=== PATIENT | female | born 2000 | race American Indian/Alaskan Native ===

== ENCOUNTER 2019-08-21 15:56 | Emergency (ER) | payer MEDICAID, OTHER ==
--- NOTE | 2019-08-21 17:53 | Event Note ---
ED Screening Note Date of service: 08/21/19 Time: 17:51 ED Screening Note: Patient complains of right thumb pain after slamming her finger in the door yesterday She states her tetanus vaccination is up-to-date Patient complains of pain and difficulty moving the thumb and that she is also concerned for infection This initial assessment/diagnostic orders/clinical plan/treatment(s) is/are subject to change based on patients health status, clinical progression and re- assessment by fellow clinical providers in the ED. Further treatment and workup at subsequent clinical providers discretion. Patient/guardian urged not to elope from the ED as their condition may be serious if not clinically assessed and managed. Initial orders include:
--- NOTE | 2019-08-21 18:51 | XRay Report ---
RIGHT THUMB 3 VIEWS INDICATION / CLINICAL INFORMATION: thumb injury, r/o fracture COMPARISON: None available. FINDINGS: BONES / JOINT(S): No acute fracture or subluxation. No significant arthritis. SOFT TISSUES: No significant abnormality. ADDITIONAL FINDINGS: None. Signer Name: Shon Aguiar MD Signed: 08/21/2019 6:47 PM Workstation Name: [id number]
--- NOTE | 2019-08-21 19:29 | Emergency Department Report ---
ED Upper Extremity Inj HPI - General Chief Complaint: Extremity Injury, Upper Stated Complaint: FINGER PAIN Time Seen by Provider: 08/21/19 17:50 Source: patient Mode of arrival: Ambulatory Limitations: No Limitations - History of Present Illness Initial Comments: 18-year-old -Spanish female presents to the emergency room for right thumb injury yesterday. Patient states that she slammed her thumb into the car door. Patient reports she has pain but has not taken anything for it. Patient denies any past medical history currently takes no medications on a daily basis and has no known drug allergies. MD Complaint: Injury to:: right Onset/Timin -: days(s) Other Extremity Injury: Fingers: Right (Thumb) Other Injuries: none Handedness: right Severity scale (0 -10): 8 Improves With: immobilization Worsens With: movement of extremity Context: crush Associated Symptoms: denies other symptoms - Related Data Previous Rx's Medication Instructions Recorded Last Taken Type Ibuprofen [Motrin 600 MG tab] 600 mg PO Q8H PRN #21 tablet 08/21/19 Unknown Rx Allergies Allergy/AdvReac Type Severity Reaction Status Date / Time No Known Allergies Allergy Unverified 08/21/19 16:28 ED Review of Systems ROS: Stated complaint: FINGER PAIN Other details as noted in HPI Comment: All other systems reviewed and negative ED Past Medical Hx - Past Medical History Previous Medical History?: No - Surgical History Past Surgical History?: No - Medications Home Medications: Home Medications Medication Instructions Recorded Confirmed Last Taken Type Ibuprofen [Motrin 600 MG tab] 600 mg PO Q8H PRN #21 tablet 08/21/19 Unknown Rx ED Physical Exam - General Limitations: No Limitations General appearance: alert, in no apparent distress - Head Head exam: Present: atraumatic, normocephalic - Eye Eye exam: Present: normal appearance - ENT ENT exam: Present: mucous membranes moist - Neck Neck exam: Present: normal inspection, full ROM - Expanded Upper Extremity Exam Right General: Present: normal inspection Shoulder Exam: Present: normal inspection Upper Arm exam: Present: normal inspection Elbow exam: Present: normal inspection Forearm Wrist exam: Present: normal inspection Hand Wrist exam: Present: tenderness (Right thumb), swelling (Right thumb). Absent: deformity Vascular: Present: normal capillary refill ED Medical Decision Making - Medical Decision Making 18-year-old -Spanish female presents to the emergency room for right thumb injury yesterday. Patient states that she slammed her thumb into the car door. Patient reports she has pain but has not taken anything for it. Patient denies any past medical history currently takes no medications on a daily basis and has no known drug allergies. X-ray is negative for any acute findings. Will place patient in a finger splint instructed her to take [id number] ibuprofen. Critical care attestation.: If time is entered above; I have spent that time in minutes in the direct care of this critically ill patient, excluding procedure time. ED Disposition Clinical Impression: Thumb injury Disposition: DC-01 TO HOME OR SELFCARE Is pt being admited?: No Does the pt Need Aspirin: No Condition: Stable Instructions: Finger Sprain (ED) Additional Instructions: Take pain medication as prescribed. Wear splint for comfort. Prescriptions: Ibuprofen [Motrin 600 MG tab] 600 mg PO Q8H PRN #21 tablet PRN Reason: Pain Referrals: PRIMARY CAREMD [Primary Care Provider] - 3-5 Days BETTY COOK MD [Staff Physician] - 3-5 Days Forms: Work/School Release Form(ED)
== END 2019-08-21 20:22 | disposition home or self-care (01) ==
LOC: ED 15:56
DX: S69.91XA Unspecified injury of right wrist, hand and finger(s), initial encounter (principal); Z79.1 Long term (current) use of non-steroidal anti-inflammatories (NSAID); X58.XXXA Exposure to other specified factors, initial encounter; Y93.89 Activity, other specified; Y92.89 Other specified places as the place of occurrence of the external cause; Y99.8 Other external cause status

== ENCOUNTER 2019-10-30 19:09 | Emergency (ER) | payer OTHER ==
[2019-10-30] MEDS ORDERED: FAMOTIDINE 20 MG/2 ML INJ IV ONE (19:57)
[2019-10-30] MEDS ORDERED: ONDANSETRON 4 MG/2 ML INJ IV ONE ×2 (19:57→22:41)
[2019-10-30] MEDS ORDERED: MORPHINE 4 MG/1 ML INJ IV ONE (19:57)
[2019-10-30] MEDS ORDERED: SODIUM CHLORIDE 0.9% 1000 ML 1,000 ML IV ONE (19:59)
[2019-10-30 20:06] LABS: Bacteria,Urine 1+ /HPF (Negative); Bilirubin,Urine NEG (Negative); Blood,Urine NEG (Negative); Color,Urine Yellow (Yellow); Mucus,Urine 3+ /HPF; Protein,Urine <15 mg/dL mg/dL (Negative)
[2019-10-30 20:08] LABS: HCG Qualitative,Urine Negative (Negative)
[2019-10-30] MEDS ORDERED: cefTRIAXone/NS 1 GM/50 ML 1 GM/50 ML BAG IV ONE (20:19)
--- NOTE | 2019-10-30 20:26 | Emergency Department Report ---
ED Abdominal Pain HPI - General Chief Complaint: Abdominal Pain Stated Complaint: MAHESH Source: patient Mode of arrival: Ambulatory Limitations: No Limitations - History of Present Illness Initial Comments: Patient is a nulliparous 19-year-old -Aust[place] female with no past m edical history presents to the ED with complaint of acute onset persistent severe right lower quadrant pain that radiates to the right upper quadrant and right flank for the last 2 weeks. Patient states that the pain initially was mild but has progressively getting worse especially in the last 12 hours. Patient states the pain is worse with any movement or inhalation. Patient states the pain also radiates from the right flank to the right lateral ribs. Patient also complains of nausea and lack of appetite and with shortness of breath. Patient denies dizziness, vomiting, fever, chills, cough, diarrhea, dysuria, vaginal discharge, vaginal bleeding, hematuria, sore throat, headache, traumatic injury or heavy lifting. MD Complaint: abdominal pain (RUQ and RLQ pain), flank pain (RIGHT ) -: Sudden, week(s) Location: RUQ, RLQ, R flank Radiation: RUQ, RLQ, R flank, other (right lateral rib pain) Migration to: no migration Severity: severe Severity scale (0 -10): 8 Quality: cramping, aching, sharp Consistency: constant Improves With: nothing Worsens With: movement Associated Symptoms: denies other symptoms, nausea. denies: vomiting, diarrhea, fever, chills, constipation, dysuria, hematemesis, hematochezia, melena, anorexia - Related Data LMP Date: 10/15/19 Previous Rx's Medication Instructions Recorded Last Taken Type Ibuprofen [Motrin 600 MG tab] 600 mg PO Q8H PRN #21 tablet 08/21/19 Unknown Rx Ibuprofen [Motrin] 600 mg PO Q8H PRN #30 tablet 10/30/19 Unknown Rx Ondansetron [Zofran Odt] 4 mg PO Q6HR PRN #15 tab.rapdis 10/30/19 Unknown Rx cephALEXin [Keflex] 500 mg PO Q6HR #40 capsule 10/30/19 Unknown Rx traMADoL [Ultram] 50 mg PO Q6HR PRN #12 tablet 10/30/19 Unknown Rx Allergies Allergy/AdvReac Type Severity Reaction Status Date / Time No Known Allergies Allergy Unverified 08/21/19 16:28 ED Review of Systems ROS: Stated complaint: MAHESH Other details as noted in HPI Constitutional: denies: chills, fever Eyes: denies: eye pain, eye discharge, vision change ENT: denies: ear pain, throat pain, dental pain, congestion Respiratory: denies: cough, shortness of breath, wheezing Cardiovascular: chest pain (right lateral rib pain). denies: palpitations Endocrine: no symptoms reported Gastrointestinal: abdominal pain (RLQ, RUQ and right flank), nausea. denies: vomiting, diarrhea, constipation, hematemesis, hematochezia Genitourinary: denies: urgency, dysuria, frequency, hematuria, discharge Musculoskeletal: denies: back pain, joint swelling, arthralgia Skin: denies: rash, lesions Neurological: denies: headache, weakness, paresthesias, abnormal gait, vertigo Psychiatric: denies: anxiety, depression Hematological/Lymphatic: denies: easy bleeding, easy bruising ED Past Medical Hx - Past Medical History Previous Medical History?: No - Surgical History Past Surgical History?: No - Medications Home Medications: Home Medications Medication Instructions Recorded Confirmed Last Taken Type Ibuprofen [Motrin 600 MG tab] 600 mg PO Q8H PRN #21 tablet 08/21/19 Unknown Rx Ibuprofen [Motrin] 600 mg PO Q8H PRN #30 tablet 10/30/19 Unknown Rx Ondansetron [Zofran Odt] 4 mg PO Q6HR PRN #15 tab.rapdis 10/30/19 Unknown Rx cephALEXin [Keflex] 500 mg PO Q6HR #40 capsule 10/30/19 Unknown Rx traMADoL [Ultram] 50 mg PO Q6HR PRN #12 tablet 10/30/19 Unknown Rx ED Physical Exam - General Limitations: No Limitations General appearance: alert, in no apparent distress - Head Head exam: Present: atraumatic, normocephalic, normal inspection - Eye Eye exam: Present: normal appearance, PERRL, EOMI Pupils: Present: normal accommodation - ENT ENT exam: Present: normal exam, normal orophraynx, mucous membranes moist, TM's normal bilaterally, normal external ear exam - Neck Neck exam: Present: normal inspection, full ROM - Respiratory Respiratory exam: Present: normal lung sounds bilaterally, chest wall tenderness (right lateral rib tenderness). Absent: respiratory distress, wheezes, rales, rhonchi, decreased breath sounds, prolonged expiratory - Cardiovascular Cardiovascular Exam: Present: regular rate, normal rhythm, normal heart sounds. Absent: systolic murmur, diastolic murmur, rubs, gallop - GI/Abdominal GI/Abdominal exam: Present: soft, tenderness (Palpable RUQ, Right flank and RLQ tenderness), guarding, normal bowel sounds. Absent: rebound, rigid, hyperactive bowel sounds, hypoactive bowel sounds, organomegaly - Extremities Exam Extremities exam: Present: normal inspection, full ROM, normal capillary refill - Back Exam Back exam: Present: normal inspection, full ROM. Absent: tenderness, CVA tenderness (R), CVA tenderness (L), muscle spasm, paraspinal tenderness, vertebral tenderness - Neurological Exam Neurological exam: Present: alert, oriented X3, CN II-XII intact, normal gait, reflexes normal - Psychiatric Psychiatric exam: Present: normal affect, normal mood - Skin Skin exam: Present: warm, dry, intact, normal color. Absent: rash ED Course Vital Signs 10/30/19 19:15 Temperature 98.3 F Pulse Rate 96 H Respiratory 16 Rate Blood Pressure 109/58 O2 Sat by Pulse 100 Oximetry ED Medical Decision Making - Lab Data Result diagrams: 10/30/19 20:00 10/30/19 20:00 - Radiology Data Radiology results: report reviewed, [place] [address] Cat Scan Report Signed Patient: ANDRÉS HEADLEY MR# : [id number] : 2000 Acct:[id number] Age/Sex: 19 / F ADM Date: 10/30/19 Loc: ED Attending Dr: Ordering Physician: PABLO BRANDT Date of Service: 10/30/19 Procedure(s): CT abdomen pelvis w con Accession Number(s): [id number] cc: PABLO BRANDT CT ABDOMEN AND PELVIS WITH CONTRAST INDICATION / CLINICAL INFORMATION: Abdominal pain in RLQ /RUQ area. TECHNIQUE: Axial CT images were obtained through the abdomen and pelvis after 100 mL Omnipaque [address] scans at this location are performed using CT dose reduction for ALARA by means of automated exposure control. COMPARISON: None available. FINDINGS: LOWER CHEST: No significant abnormality. LIVER: No significant abnormality. GALLBLADDER: No significant abnormality. BILE DUCTS: No significant abnormality. PANCREAS: No significant abnormality. SPLEEN: No significant abnormality. ADRENALS: No significant abnormality. RIGHT KIDNEY / URETER: No significant abnormality. LEFT KIDNEY / URETER: No significant abnormality. STOMACH / SMALL BOWEL: No significant abnormality. COLON: No significant abnormality. APPENDIX: No significant abnormality. PERITONEUM: No free fluid. No free air. No fluid collection. LYMPH NODES: No significant adenopathy. AORTA / ARTERIES: No significant abnormality. IVC / VEINS: No significant abnormality. URINARY BLADDER: No significant abnormality. REPRODUCTIVE ORGANS: Bilobed left adnexal cystic lesion measuring 5.0 x 3.3 cm on axial series 2 image 138. ADDITIONAL FINDINGS: None. SKELETAL SYSTEM: No significant abnormality. IMPRESSION: 1. Bilobed left adnexal cystic lesion measuring up to 5 cm. Follow-up pelvic ultrasound in 2 months is recommended. 2. No inflammatory process. Normal appendix. Signer Name: Ashley Gross MD Signed: 10/30/2019 10:03 PM Workstation Name: [id number] Transcribed By: DT Dictated By: Taiwo Gross MD Electronically Authenticated By: Taiwo Gross MD Signed Date/Time: 10/30/192202 DD/ 55 TD/TT: Findings [facility] [address] [place] [address] XRay Report Signed Patient: ANDRÉS HEADLEY MR# : [id number] : 2000 Acct:[id number] Age/Sex: 19 / F ADM Date: 10/30/19 Loc: ED Attending Dr: Ordering Physician: PABLO BRANDT Date of Service: 10/30/19 Procedure(s): XR chest 1V ap Accession Number(s): [id number] cc: PABLO BRANDT Fluoro Time In Minutes: CHEST 1 VIEW 10/30/2019 8:00 PM INDICATION / CLINICAL INFORMATION: rib pain, dyspnea. COMPARISON: None available. FINDINGS: SUPPORT DEVICES: None. HEART / MEDIASTINUM: No significant abnormality. LUNGS / PLEURA: No significant pulmonary or pleural abnormality. No pneumothorax. ADDITIONAL FINDINGS: No significant additional findings. IMPRESSION: 1. No acute findings. Signer Name: Ashley Gross MD Signed: 10/30/2019 9:12 PM Workstation Name: [id number] Transcribed By: DT Dictated By: Taiwo Gross MD Electronically Authenticated By: Taiwo Gross MD Signed Date/Time: 10/30/192111 DD/ 10 TD/TT: - Medical Decision Making This is a nulliparous 19-year-old -Aust[place] female with no past medical history presents to the ED with complaint of acute onset persistent severe right lower quadrant pain that radiates to the right upper quadrant and right flank for the last 2 weeks. Patient states that the pain initially was mild but has progressively getting worse especially in the last 12 hours. Patient states the pain is worse with any movement or inhalation. Patient states the pain also radiates from the right flank to the right lateral ribs. Patient also complains of nausea and lack of appetite and with shortness of breath. In the ED, patient is alert and oriented x3 and is not in distress but appears to be in significant pain. Patient was treated for pain in the ED also given antiemetics and normal saline 1 L IV bolus x1. Lab test results were reviewed and showed H&H of 8.3 and 25.5, and urinalysis showed significant UTI characterized by positive nitrites. Chest x-ray shows no acute cardiopulmonary abnormalities or pneumonitis. Abdomen pelvis CT scan with contrast shows a normal appendix and a bilobed left adnexal cystic lesion measuring 5.0 x 3.3 cm. On reevaluation, patient's pain is well controlled medications. Patient was also treated in the ED with Rocephin 1 g IV x1 for UTI. 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 - Differential Diagnosis Appendicitis; Pyelonephritis; Kidney stones; Cholelithiasis; Ovarian cyst; Critical care attestation.: If time is entered above; I have spent that time in minutes in the direct care of this critically ill patient, excluding procedure time. ED Disposition Clinical Impression: Acute abdominal pain in right lower quadrant, Acute urinary tract infection, Cyst of left ovary Disposition: TO HOME OR SELFCARE Is pt being admited?: No Does the pt Need Aspirin: No Condition: Stable Instructions: Urinary Tract Infection in Women (ED), Abdominal Pain (ED), Ovarian Cyst (ED) Additional Instructions: Your lab test results show significant UTI; and the Abdomen-Pelvis CT scan with contrast shows left ovarian cyst. Therefore take medications with food as advised, follow up with your Faye-Patent Chemist Physician in 7-10 days for reevaluation. It is recommended that you have a follow up pelvic ultrasound in 2 months to reevaluate for the left ovarian cyst. Return to the ED immediately if symptoms get worse. Prescriptions: cephALEXin [Keflex] 500 mg PO Q6HR #40 capsule Ibuprofen [Motrin] 600 mg PO Q8H PRN #30 tablet PRN Reason: Pain traMADoL [Ultram] 50 mg PO Q6HR PRN #12 tablet PRN Reason: Pain Ondansetron [Zofran Odt] 4 mg PO Q6HR PRN #15 tab.rapdis PRN Reason: Nausea Referrals: [facility] [Provider Group] - 3-5 Days ROB BARLOW JR, MD [Staff Physician] - 3-5 Days Time of Disposition: 20:27 Print Language: ALGERIAN
[2019-10-30 20:35] LABS: Basophils % (Auto) 0.5 % (0.0-1.8); Eosinophils % (Auto) 0.3 % (0.0-4.3); Hematocrit 25.5 % (30.3-42.9); Hemoglobin 8.3 gm/dl (10.1-14.3); Lymphocytes # (Auto) 1.6 K/mm3 (1.2-5.4); Mean Corpuscular HGB Conc 33 % (30-34); Mean Corpuscular Volume 77 fl (79-97); Monocytes % (Auto) 9.3 % (0.0-7.3); Platelet Count 609 K/mm3 (140-440)
[2019-10-30 20:58] LABS: Alanine Aminotransferase 7 units/L (7-56); Albumin 4.1 g/dL (3.9-5); BUN/Creatinine Ratio 7; Blood Urea Nitrogen 6 mg/dL (7-17); Calcium 9.4 mg/dL (8.4-10.2); Hemolysis Index 0
--- NOTE | 2019-10-30 21:16 | XRay Report ---
CHEST 1 VIEW 10/30/2019 8:00 PM INDICATION / CLINICAL INFORMATION: rib pain, dyspnea. COMPARISON: None available. FINDINGS: SUPPORT DEVICES: None. HEART / MEDIASTINUM: No significant abnormality. LUNGS / PLEURA: No significant pulmonary or pleural abnormality. No pneumothorax. ADDITIONAL FINDINGS: No significant additional findings. IMPRESSION: 1. No acute findings. Signer Name: Ashley Gross MD Signed: 10/30/2019 9:12 PM Workstation Name: [id number]
--- NOTE | 2019-10-30 22:07 | Cat Scan Report ---
CT ABDOMEN AND PELVIS WITH CONTRAST INDICATION / CLINICAL INFORMATION: Abdominal pain in RLQ /RUQ area. TECHNIQUE: Axial CT images were obtained through the abdomen and pelvis after 100 mL Omnipaque [address] scans at this location are performed using CT dose reduction for ALARA by means of automated exposure control. COMPARISON: None available. FINDINGS: LOWER CHEST: No significant abnormality. LIVER: No significant abnormality. GALLBLADDER: No significant abnormality. BILE DUCTS: No significant abnormality. PANCREAS: No significant abnormality. SPLEEN: No significant abnormality. ADRENALS: No significant abnormality. RIGHT KIDNEY / URETER: No significant abnormality. LEFT KIDNEY / URETER: No significant abnormality. STOMACH / SMALL BOWEL: No significant abnormality. COLON: No significant abnormality. APPENDIX: No significant abnormality. PERITONEUM: No free fluid. No free air. No fluid collection. LYMPH NODES: No significant adenopathy. AORTA / ARTERIES: No significant abnormality. IVC / VEINS: No significant abnormality. URINARY BLADDER: No significant abnormality. REPRODUCTIVE ORGANS: Bilobed left adnexal cystic lesion measuring 5.0 x 3.3 cm on axial series 2 imag e 138. ADDITIONAL FINDINGS: None. SKELETAL SYSTEM: No significant abnormality. IMPRESSION: 1. Bilobed left adnexal cystic lesion measuring up to 5 cm. Follow-up pelvic ultrasound in 2 months i s recommended. 2. No inflammatory process. Normal appendix. Signer Name: Ashley Gross MD Signed: 10/30/2019 10:03 PM Workstation Name: [id number]
[2019-10-30] MEDS ORDERED: KETOROLAC 30 MG/1 ML INJ IV ONE (22:41)
[2019-10-30 22:59] VITALS: BP 115/80
== END 2019-10-30 22:57 | disposition home or self-care (01) ==
LOC: ED 19:09
DX: N39.0 Urinary tract infection, site not specified (principal); N83.292 Other ovarian cyst, left side
CPT/HCPCS: 36415; 71045; 74177; 80053; 81001; 81025; 83690; 85025; 96361; 96365; 96375; 96376; 99284; J0696; J1885; J2270; J2405; J7030; Q9967